=== PATIENT | male | born 1975 | race African-American/Black ===

== ENCOUNTER 2019-05-09 12:54 | Emergency (ER) | payer SELFPAY ==
[2019-05-09] MEDS ORDERED: ACETAMINOPHEN 1,000 MG/100 ML BTL IVPB ONE (13:17)
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
[2019-05-09 13:24] LABS: ABSOLUTE NEUTROPHIL COUNT 5.58; BASO % 0.3 % (0-6); EOS % 0.8 % (0-6); GRAN % 74.7 % (47-80); HEMATOCRIT 37.5 % (42.0-52.0); HEMOGLOBIN 11.5 gm/dl (14.0-18.0); LYMPH % 17.5 % (16-45); MEAN CELL VOLUME 75.5 fl (81-97); MEAN CORPUSCULAR HEMOGLOBIN 23.1 pg (27-33); MEAN CORPUSCULAR HGB CONC 30.7 g/dl (32-36); MEAN PLATELET VOLUME 8.8 fl (7.4-10.4); MONO % 6.7 % (0-9); PLATELET COUNT 623 K/uL (130-400); RED BLOOD COUNT 4.97 M/uL (4.40-5.70); RED CELL DISTRIBUTION WIDTH 18.1 % (11.5-14.5); WHITE BLOOD COUNT W/O DIFF 7.5 K/uL (4.2-12.2)
[2019-05-09 13:38] LABS: BLOOD UREA NITROGEN 8 mg/dL (6-20); CREATININE 0.7 mg/dL (0.7-1.2); EST GLOMERULAR FILTRATION RATE > 60 mL/min
[2019-05-09 13:41] LABS: GLUCOSE,RANDOM 126 mg/dL (74-109)
[2019-05-09 13:43] LABS: ALBUMIN 3.5 g/dL (4.0-5.0); ALKALINE PHOSPHATASE 86 U/L (40-129); ALT/SGPT 8 U/L (<41); AST/SGOT 9 U/L (10.0-50.0)
[2019-05-09 13:44] LABS: BILIRUBIN,DIRECT < 0.2 mg/dL (0-0.3); C-REACTIVE PROTEIN 5.31 mg/dL (<0.5)
[2019-05-09] MEDS ORDERED: KETOROLAC 30 MG/ML VIAL IVP ONE (13:51)
[2019-05-09 14:03] LABS: ERYTHROCYTE SEDIMENTATION RATE 78 mm/hr (0-15)
--- NOTE | 2019-05-09 15:06 | CT SCAN REPORT ---
EXAMINATION: CT of the Pelvis with Intravenous Contrast. EXAM DATE: 05/09/2019 2:31 PM TECHNIQUE: A standard CT pelvis protocol was performed with intravenous contrast. Sagittal and walker l images were reconstructed. IV Contrast: The type and amount of contrast is recorded within the medical record. INDICATION: L buttock infection COMPARISON: None ENCOUNTER: Not applicable FINDINGS: Ureters & Bladder: Both distal ureters have a normal caliber and the urinary bladder is unremarkable . Gastrointestinal: Included large and small bowel segments in the pelvis are unremarkable. Reproductive Organs: Unremarkable Lymphatic System: Enlarged bilateral inguinal lymph nodes measure up to 1.6 cm on the right and 2 cm in short axis on the left. Vasculature: The iliac arteries have a normal caliber. Peritoneum: There is no free fluid within the pelvis. Retroperitoneum: There is no retroperitoneal mass, hemorrhage, or hematoma. Abdominal Wall & Musculoskeletal: There is severe asymmetric atrophy of the left gluteus muscles. Superficial skin defect along the lef t gluteal region is compatible with the patient's known wound. Abnormal skin thickening with hyperatt enuation measuring up to 1.7 cm is seen along the skin and subcutaneous fat within the left gluteal r egion. No discrete peripherally enhancing walled off fluid collection is identified to indicate a yue inable abscess. Osseous structures have normal mineralization. No aggressive osseous lesions are seen. Metallic forei gn body is noted within the distal left iliopsoas. 3-D imaging: Not performed. IMPRESSION: 1. Skin thickening with superficial hyperenhancement likely related to cellulitis and induration. The re is ill-defined heterogeneous enhancement which can reflect phlegmonous changes related to infectio n of the underlying subcutaneous fat. No discrete walled off fluid collection is identified to indica te a drainable abscess. There is associated bilateral inguinal adenopathy as above. 2. Asymmetric atrophy of the left gluteal muscles. 3. No supralevator fluid collection. Or acute intraperitoneal findings of the imaged pelvis. 4. Metallic foreign body embedded within the distal left iliopsoas muscle. Dictated by: Quang Camejo DO on 05/09/2019 2:53 PM. .
[2019-05-09] MEDS ORDERED: CEFTRIAXONE 1GM/50ML BAG 1 GM/50 ML BAG IVPB ONE (15:07)
== END 2019-05-09 17:54 | disposition short-term general hospital (02) ==
LOC: ER 12:54
DX: L03.317 Cellulitis of buttock (principal); I10 Essential (primary) hypertension
CPT/HCPCS: 99285 ×2; 96365; 96366; 96375; 85025; 85651; 80076; 86140; 80048; 72193; Q9967; J1885; J0696